=== PATIENT | female | born 1940 | race Caucasian/White ===

== ENCOUNTER 2019-01-10 07:51 | Outpatient (CLI) | payer OTHER ==
[~2019-01-10] VITALS: Ht 152.4 cm; Wt 72.6 kg
== END 2019-01-10 11:24 | disposition home or self-care (01) ==
LOC: OFIC 805 07:51
DX: H90.3 Sensorineural hearing loss, bilateral (principal); H61.23 Impacted cerumen, bilateral; J31.0 Chronic rhinitis; H60.8X3 Other otitis externa, bilateral

== ENCOUNTER 2020-08-12 06:31 | Day surgery (SDC) | payer OTHER ==
[~2020-08-12 06:31] MED LIST: LIPITOR20 MG PO; TOPROL XL25 M1 PO; XARELTO20 MG PO
== END 2020-08-12 12:45 | disposition home or self-care (01) ==
LOC: CIR.AMB 06:31
PROVIDERS: ATTEND Specialist
DX: C18.2 Malignant neoplasm of ascending colon (principal); Z20.822 Contact with and (suspected) exposure to COVID-19

== ENCOUNTER 2021-06-09 08:49 | Outpatient (CLI) | payer OTHER | END 2021-06-09 08:50 | disposition home or self-care (01) | LOC: NUCLEAR 08:49 | PROVIDERS: ATTEND Internal Medicine Hematology & Oncology | DX: C18.4 Malignant neoplasm of transverse colon (principal); I10 Essential (primary) hypertension; D63.0 Anemia in neoplastic disease ==